=== PATIENT | male | born 1950 | race Caucasian/White ===

== ENCOUNTER 2018-11-05 08:15 | Day surgery (SDC) | payer MEDICARE, BC, SELFPAY ==
--- NOTE | 2018-11-04 22:25 | Pre-Procedure Note/Attestation ---
Pre-Procedure Note/Attestation Complete Prior to Procedure Planned Procedure: right - Removal of cataract and placement of intraocular lens, right eye Procedure Narrative: Removal of cataract and placement of intraocular lens, right eye Indications for Procedure Pre-Operative Diagnosis: Cataract, combined, right eye Attestation I attest that I discussed the nature of the procedure; its benefits; risks and complications; and alternatives (and the risks and benefits of such alternatives ), prior to the procedure, with the patient (or the patient's legal payroll representative). I attest that, if there was a reasonable possibility of needing a blood transfusion, the patient (or the patient's legal payroll representative) was given the [place] [facility] [employer] [facility] standardized written summary, pursuant to the [place] [place] Blood Safety Act ([place] Health and Safety Code # 1645, as amended). I attest that I re-evaluated the patient just prior to the surgery and that there has been no change in the patient's H&P, except as documented below: Gurinder Cabrera MD Nov 04, 2018 22:25
[~2018-11-05] VITALS: Ht 177.8 cm; Wt 79.4 kg
[2018-11-05] VITALS (7 sets, daily range): BP systolic 111–145; BP diastolic 65–83
[2018-11-05] MEDS ORDERED: ROBITUSSIN NIG237 ML PO (09:08)
[2018-11-05] MEDS ORDERED: LOVASTATIN40 MG ORAL (09:08)
[2018-11-05] MEDS ORDERED: LOSARTAN POTASS25 MG ORAL (09:08)
[2018-11-05] MEDS: Cyclopentolate 1% Opth Sol 2ml RIGHT EYE SCH ×3 (09:13→09:35)
[2018-11-05] MEDS: Phenylephrine 10% Opth Soln 5ml RIGHT EYE SCH ×3 (09:13→09:35)
[2018-11-05] MEDS: Tropicamide 1% Opth 15ml Soln RIGHT EYE SCH ×3 (09:13→09:35)
[2018-11-05] MEDS: Tobradex Opth Susp 2.5ml RIGHT EYE SCH ×3 (09:14→09:35)
[2018-11-05] MEDS: Vigamox Opth Soln 3ml RIGHT EYE SCH ×3 (09:35→09:39)
[2018-11-05] MEDS ORDERED: EPINEPHrine 1mg/1ml Amp ONE (09:37)
[2018-11-05] MEDS ORDERED: Lidocaine 4% Amp ONE (09:38)
[2018-11-05] MEDS ORDERED: Fluorescein Strips ONE ×2 (09:38→18:31)
[2018-11-05] MEDS ORDERED: Maxitrol Opth Oint 3.5gm ONE (09:38)
[2018-11-05] MEDS ORDERED: Timolol 0.5% Op Soln 2.5ml ONE ×2 (09:38→18:31)
[2018-11-05] MEDS ORDERED: Pred Forte 1% Opth Susp 1ml ONE (09:38)
[2018-11-05] MEDS ORDERED: Carbachol 0.01% Op Soln 1.5ml vial ONE (09:38)
[2018-11-05] MEDS ORDERED: Lidocaine 1% MPF 10mg/ml 5ml ONE ×2 (09:38→11:00)
[2018-11-05] MEDS ORDERED: BSS 15ml BTL ONE (09:39)
[2018-11-05] MEDS ORDERED: Dexamethasone 4mg/ml vial ONE (09:39)
[2018-11-05] MEDS ORDERED: Povidone-Iodine 5% opth solution ONE (09:39)
[2018-11-05] MEDS ORDERED: BSS 500ml btl ONE (09:39)
[2018-11-05] MEDS ORDERED: Sodium Hyaluronate 10 mg/ml 0.85ml ONE ×2 (09:40→12:46)
[2018-11-05] MEDS ORDERED: Acetylcholine Injection (OR) ONE (09:40)
[2018-11-05] MEDS ORDERED: DiphenhydrAMINE 50mg/ml Inj ONE (09:53)
[2018-11-05] MEDS ORDERED: Midazolam 2mg/2ml Inj ONE (09:53)
[2018-11-05] MEDS ORDERED: Propofol 200mg/20ml IV ONE (09:53)
[2018-11-05] MEDS ORDERED: fentaNYL 100 mcg/2 mL IV ONE (09:53)
[2018-11-05] MEDS ORDERED: Tetracaine 0.5% Opth 4ml Soln ONE (10:07)
[2018-11-05] MEDS ORDERED: LR 1000ml 1,000 ML IVLG SCH (10:19)
--- NOTE | 2018-11-05 10:19 | Anethesia Preoperative Eval ---
Anesthesia Pre-op PMH/ROS General Date of Evaluation: Nov 05, 2018 Anesthesiologist: Edu ASA Score: ASA 2 Mallampati Score Class I : Soft palate, uvula, fauces, pillars visible Class II: Soft palate, uvula, fauces visible Class III: Soft palate, base of uvula visible Class IV: Only hard plate visible Mallampati Classification: Class II Surgeon: Deborah Diagnosis: Right cataract Surgical Procedure: Right cataract extraction with IOL Anesthesia History: none Family History: no anesthesia problems Allergies: Coded Allergies: No Known Allergies (Unverified , 11/04/18) Medications: see eMAR Patient NPO?: Yes NPO Date: Nov 04, 2018 NPO Time: 22:00 Past Medical History Cardiovascular: Reports: HTN, other - HLD; Denies: CAD, DC, valve dz, arrhythmia Pulmonary: Denies: asthma, COPD, CARIDAD, other Gastrointestinal/Genitourinary: Denies: GERD, CRI, ESRD, other Neurologic/Psychiatric: Denies: dementia, CVA, depression/anxiety, TIA, other Endocrine: Denies: DM, hypothyroidism, steroids, other HEENT: Reports: cataract (R); Denies: cataract (L), glaucoma, PASCUA YAQUI (L), PASCUA YAQUI (R), other Hematology/Immune: Denies: anemia, DVT, bleeding disorder, other Musculoskeletal/Integumentary: Reports: OA; Denies: RA, DJD, DDD, edema, other PSxH Narrative: Left cataract Anesthesia Pre-op Phys. Exam Physician Exam Last Vital Signs Date Time Temp Pulse Resp B/P (MAP) Pulse Ox O2 Delivery O2 Flow Rate FiO2 11/05/18 09:24 97.2 56 20 145/83 98 Room Air Constitutional: NAD Cardiovascular: RRR Respiratory: CTA Airway Exam Mallampati Score: Class II MO: full ROM: full Teeth: intact Anesthesia Pre-op A/P Labs see chart Studies Pre-op Studies: EKG - sr Risk Assessment & Plan Assessment: ASA II Plan: MAC Status Change Before Surgery: No Pre-Antibiotics Drug: N/A Maria Fernanda Burt MD Nov 05, 2018 10:19
[2018-11-05] MEDS ORDERED: DiphenhydrAMINE 50mg/ml Inj IVP PRN (10:30)
[2018-11-05] MEDS ORDERED: NS Irrig 1000ml ONE (11:00)
[2018-11-05] MEDS ORDERED: Sterile Water Irrig 1000ml IRRIG ONE (11:00)
[2018-11-05] MEDS ORDERED: LR 1000ml ONE (11:00)
--- NOTE | 2018-11-05 12:46 | Immediate Post-Op Evaluation ---
Immediate Post-Op Evalulation Immediate Post-Op Evalulation Procedure: Right cataract extraction with IOL Date of Evaluation: Nov 05, 2018 Time of Evaluation: 12:52 IV Fluids: 800 Blood Products: 0 Estimated Blood Loss: 0 Urinary Output: 0 Blood Pressure Systolic: 111 Blood Pressure Diastolic: 65 Pulse Rate: 47 Respiratory Rate: 16 O2 Sat by Pulse Oximetry: 97 Temperature (Fahrenheit): 97 Pain Score (1-10): 0 Nausea: No Vomiting: No Complications 0 Patient Status: awake, reacts, patent, none Hydration Status: adequate Drug: N/A Maria Fernanda Burt MD Nov 05, 2018 12:46
--- NOTE | 2018-11-05 12:47 | 48 Hour Post Anesthesia Eval ---
Post Anesthesia Evaluation Procedure: Right cataract extraction with IOL Date of Evaluation: Nov 05, 2018 Airway: patent Nausea: No Vomiting: No Pain Intensity: 0 Hydration Status: adequate Cardiopulmonary Status: at baseline Mental Status/LOC: patient returned to baseline Post-Anesthesia Complications: 0 Follow-up care needed: ready to discharge Maria Fernanda Burt MD Nov 05, 2018 12:47
--- NOTE | 2018-11-05 12:48 | Brief Operative Note ---
Immediate Post Operative Note Operative Note Pre-op Diagnosis: Cataract, combined, right eye Procedure: Phaco PC IOL, OD Post-op Diagnosis: same as pre-op Surgeon: Helen Cabrera MD MS Anesthesiologist: Dr Mcclure Anesthesia: local Specimen: none Complications: none Fluids: see chart Implant(s) used?: Yes - emery [id number] 15.0 Gurinder Cabrera MD Nov 05, 2018 12:48
--- NOTE | 2018-11-05 12:50 | Discharge Instructions ---
Discharge Instructions Discharge Instructions Follow Up Orders Continue preop eye drops F/u tomorrow in Dr Cabrera's office Wear shield at all times except to place eye drops For Congestive Heart Failure Reminder Report to your physician any weight gain of 5 pounds or more in one week. Gurinder Cabrera MD Nov 05, 2018 12:50
--- NOTE | 2018-11-12 11:00 | Operative Note - Dictated ---
DATE OF OPERATION: 11/05/2018 SURGEON: Gurinder Cabrera M.D. ELECTRIC SEALING MACHINE OPERATOR SURGEON: None. ANESTHESIOLOGIST: Dr. Mcclure. ANESTHESIA: Local/standby/monitored anesthesia care. PREOPERATIVE DIAGNOSIS: Combined cataract, right eye. POSTOPERATIVE DIAGNOSIS: Combined cataract, right eye. PROCEDURE: 1. Phacoemulsification of cataract, right eye. 2. Placement of posterior chamber intraocular lens, right eye (model Morales [id number], power 15.0 with +3.25 ). SPECIMENS: None. COMPLICATIONS: None. INDICATIONS FOR SURGERY: The patient has had the painless progressive decrease in visual acuity in the right eye secondary to cataract. The patient understands the risks of surgery including infection, bleeding, need for further surgery, loss of vision, no improvement in vision, loss of the eye, loss of life, glaucoma, retinal detachment, understands these risks and elects to proceed with surgery. FINDINGS: The patient had a +2 to 3 nuclear sclerotic cataract and a +3 anterior subcapsular cataract. There was +1 cortical changes also. OPERATIVE NOTE: After informed consent was obtained, the patient was brought into the operating room, placed in supine position. Cardiac and respiratory monitors were attached. A time-out was performed and all criteria were met and everyone in the room agreed. The right eye was then draped and prepped in a sterile manner for ocular surgery. A lid speculum was placed in the eye. A 1% lidocaine preservative-free was then injected at the 2:30 limbus. Conjunctival peritomy from approximately 2 o'clock to 3 o'clock was made and dissected anteriorly. Paracentesis was made at approximately 12 o'clock and Shugarcaine was injected into the anterior chamber followed by Healon. The anterior chamber was then entered using a 2.6 mm keratome through the limbal incision. An anterior capsulorrhexis was then performed. Hydrodissection and hydrodelineation of the lens was then performed. The lens was then phacoemulsified using divide and conquer four-quadrant technique. Residual cortical material was then aspirated. Healon was injected into the anterior chamber and capsular bag. The lens was taken from its package and placed into the cartridge and the cartridge was placed through the limbal incision and the lens was injected into the capsular bag and centered nicely with a Sinskey hook. Healon was aspirated from the anterior chamber and capsular bag. Miostat was injected into the anterior chamber. The pupil came down nicely and round. One 10-0 nylon interrupted suture was placed through the limbal incision. The knot was rotated and buried. The wounds were checked and found to be watertight. The conjunctiva was then closed with forceps cautery. The lid speculum and drapes were removed from the eye and drops of Vigamox and Pred Forte were applied to the eye followed by Maxitrol ointment and shield. The patient tolerated the procedure well and left the operating room awake, alert, and in stable condition. Gurinder Cabrera M.D. DR: Mike JOB#: [id number] CC:
== END 2018-11-05 14:10 | disposition home or self-care (01) ==
LOC: SUR 08:15
DX: H25.11 Age-related nuclear cataract, right eye (principal); H25.031 Anterior subcapsular polar age-related cataract, right eye; I10 Essential (primary) hypertension; E78.5 Hyperlipidemia, unspecified; M19.90 Unspecified osteoarthritis, unspecified site
CPT/HCPCS: 66984; J1100; J1200; J2250; J2704; J3010; 94003; 94150